=== PATIENT | female | born 1980 | race Caucasian/White ===

== ENCOUNTER 2019-04-04 06:42 | Inpatient (IN) | payer OTHER ==
[~2019-04-04] VITALS: Ht 165.1 cm; Wt 120.0 kg
[2019-05-03] VITALS (18 sets, daily range): BP systolic 85–136; BP diastolic 36–82; PULSE 71–101; TEMP 97.4–98.5
[2019-05-03] MEDS ORDERED: PRENATAL VITAMI1 TA3 PO (10:11)
[2019-05-03] MEDS ORDERED: FOLIC ACID 11 MG/TA1 PO (10:11)
[2019-05-03] MEDS ORDERED: IRON TABLETS325 MG PO (10:11)
[2019-05-03] MEDS ORDERED: ZOLOFT 100MG100 MG PO (10:11)
[2019-05-03] MEDS ORDERED: OSCAL 500 TAB500 MG PO (10:12)
[2019-05-03 10:45] LABS: BASO % 0.2 % (0.0-2.0); EOS # 0.1 (0.0-0.7); EOS % 0.8 % (0-4.0); GRAN # 6.2 (1.4-6.5); GRAN % 72.1 % (42.2-75.2); HEMOGLOBIN 10.5 g/dl (12.5-16.0); LYMPH # 1.6 (1.2-3.4); LYMPH % 18.8 % (20.0-51.0); MEAN CELL VOLUME 94 fl (80.0-100.0); MEAN CORPUSCULAR HEMOGLOBIN 31 pg (27.0-31.0); MEAN CORPUSCULAR HGB CONC 33 g/dl (33.0-37.0); MEAN PLATELET VOLUME 11.3 fl (7.4-10.4); MONO # 0.7 (0.1-0.6); MONO % 7.9 % (1.7-9.3); PLATELET COUNT 214 K/mm3 (130-400); RED BLOOD COUNT 3.38 M/mm3 (4.10-5.30); REDCELL DISTRIBUTION WIDTH-CV 12.5 % (11.5-14.5)
[2019-05-03 10:49] LABS: HEMATOCRIT 31.6 % (37.0-47.0)
[2019-05-03 11:10] LABS: TRICYCLIC ANTIDEPRESS URINE NEGATIVE
[2019-05-04 05:30] VITALS: BP 109/61; PULSE 90; TEMP 98.7
[2019-05-04 07:19] LABS: HEMATOCRIT 27.6 % (37.0-47.0)
[2019-05-04 07:48] VITALS: BP 128/66; PULSE 85; TEMP 97.8
--- NOTE | 2019-05-04 15:08 | NUR ---
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 The patient did not use after that time. The patient's and baby urine drug screen were both negative; awaiting cord screening. The father of the baby is involved and they have another child together that is 11 years old; the patient has two other children from a previous relationship. SIOBHAN messina addressed THC use and offered outpatient resources for drug treatment; patient was not interested. The patient's nurse reports the patient and family are appropriate with the baby. The patient is nursing the baby and has received lacatation services. The patient reports she has a car seat and will have it brought in tomorrow, 05/05. The patient reports she has lots of family support. SIOBHAN messina provided a resource packet to the patient. SIOBHAN messina and patient's nurse collaborated with the above information.
[2019-05-04 15:37] VITALS: BP 126/78; PULSE 88; TEMP 98.1
[2019-05-04 19:30] VITALS: BP 130/72; PULSE 78; TEMP 98.8
[2019-05-05 07:20] VITALS: BP 130/64; PULSE 87; TEMP 97.8
[2019-05-05] MEDS ORDERED: IBU600 MG PO (07:45)
[2019-05-05] MEDS ORDERED: PERCOCET 325 MG1 TA2 PO (07:45)
== END 2019-05-05 12:15 | disposition home or self-care (01) | DRG 788 ==
LOC: LDR 05-03 06:41 → OB 05-03 09:54
PROVIDERS: ADMIT Obstetrics & Gynecology
PROC: 10D00Z1 Extraction of Products of Conception, Low, Open Approach (ICD-10-PCS; principal; 2019-05-03)
DX: O34.211 Maternal care for low transverse scar from previous cesarean delivery (principal); Z3A.39 39 weeks gestation of pregnancy; O99.02 Anemia complicating childbirth; D64.9 Anemia, unspecified; O99.214 Obesity complicating childbirth; O99.344 Other mental disorders complicating childbirth; Z37.0 Single live birth; O99.824 Streptococcus B carrier state complicating childbirth
CPT/HCPCS: J0690; J1885; J2370; J2405; J2590; J7120